=== PATIENT | female | born 1965 | race Caucasian/White ===

== ENCOUNTER 2023-11-12 08:02 | Outpatient (CLI) | payer OTHER | END 2023-11-12 08:03 | disposition home or self-care (01) | LOC: CSHMRI 08:02 | PROVIDERS: ATTEND Family Medicine | DX: M50.10 Cervical disc disorder with radiculopathy, unspecified cervical region (principal); Z98.890 Other specified postprocedural states; G95.89 Other specified diseases of spinal cord; Z98.1 Arthrodesis status; M25.78 Osteophyte, vertebrae | CPT/HCPCS: 72141 ==